=== PATIENT | female | born 1975 | race African-American/Black ===

== ENCOUNTER 2018-05-21 16:35 | Emergency (ER) | payer SELFPAY ==
[~2018-05-21] VITALS: Ht 157.5 cm; Wt 49.9 kg
[2018-05-21 16:42] VITALS: Ht 157.5 cm; Wt 49.9 kg
[2018-05-21 18:27] VITALS: BP 137/93
== END 2018-05-21 18:29 | disposition home or self-care (01) ==
LOC: ED 16:35
DX: G93.41 Metabolic encephalopathy (principal); T40.7X5A Adverse effect of cannabis (derivatives), initial encounter; J45.909 Unspecified asthma, uncomplicated; F17.210 Nicotine dependence, cigarettes, uncomplicated; Y92.89 Other specified places as the place of occurrence of the external cause
CPT/HCPCS: 99406